=== PATIENT | female | born 1960 | race Caucasian/White ===

== ENCOUNTER 2021-06-13 15:38 | Inpatient (IN) ==
[2021-06-13] MEDS ORDERED: dexAMETHasone**PF** 10 MG/ML VIAL IV ONE (16:29)
[2021-06-13] MEDS ORDERED: ONDANSETRON INJ 2 MG/ML 2 ML VIAL IV STA (16:29)
[2021-06-13] MEDS ORDERED: SODIUM CHLORIDE 0.9% 1000ML 1,000 ML IV SCH (16:30)
[2021-06-13 16:44] LABS: Basophils # (auto) 0.01 K/uL (0-0.2); Basophils % (auto) 0.3 %; Eosinophils # (auto) 0.01 K/uL (0-0.5); Eosinophils % (auto) 0.3 %; Hematocrit (blood only) 41.4 % (37-47); Hemoglobin 13.9 g/dL (12.0-16.0); Immature Granulocytes # (auto) 0.01 K/uL (0.00-0.02); Immature Granulocytes % (auto) 0.3 %; Lymphocytes % (auto) 26.9 %; Mean Corpuscular Hemoglobin 28.7 pg (25-34); Mean Corpuscular Hgb Conc 33.6 g/dL (32-36); Mean Corpuscular Volume 85.4 fL (80-100); Mean Platelet Volume 10.2 fL (7.4-10.4); Monocytes # (auto) 0.54 K/uL (0.11-0.59); Monocytes % (auto) 16.2 %; Neutrophils # (auto) 1.87 K/uL (1.4-6.5); Platelet Count 143 K/uL (130-400); RDW Coefficient of Variation 12.8 % (11.5-14.5); RDW Standard Deviation 39.6 fL (36.4-46.3); Red Blood Count 4.85 M/uL (4.2-5.4); White Blood Count 3.34 K/uL (4.8-10.8)
[2021-06-13 16:52] LABS: Alanine Aminotransferase 82 U/L (12-78); Albumin Level 3.6 gm/dl (3.4-5.0); Aspartate Aminotransferase 65 U/L (15-37); BUN Creatinine Ratio 11.4 (10-20); Blood Urea Nitrogen 7 mg/dl (7-18); Calcium 8.2 mg/dl (8.5-10.1); Carbon Dioxide 27 mmol/L (21-32); Chloride 105 mmol/L (98-107); Creatinine Clr Calc Pharmacy 106.5 ml/min; Est GFR (African American) 113.8 ml/min; Est GFR (Non-African American) 98.2 ml/min; Glucose 120 mg/dl (70-99); Magnesium 2.3 mg/dl (1.8-2.4); Potassium 2.9 mmol/L (3.5-5.1); Sodium 138 mmol/L (136-145)
[2021-06-13 16:55] LABS: D Dimer 310 ug/L FEU (0-500)
--- NOTE | 2021-06-13 16:55 | Emergency Department Note ---
Impression & Plan COVID-19, Hypoxia, Nausea, Weakness ED Provider Note INFORMANT: Patient ED PROVIDER(S): Mitchel Benavides MD CHIEF COMPLAINT: Shortness of breath PLAN: Disposition: Admitted Condition: Good Outpatient prescription management: none Referral: None MEDICAL DECISION MAKING: Patient is exhibiting signs and symptoms for COVID-19. She was placed in isolation. She was hypoxic but responded very well to supplemental oxygen. She had an IV established. She was given Zofran, IV fluids, and IV Decadron. Chest x-ray and blood work performed. The patient's chest x-ray was unremarkable. Radha villela was doing much better after the above medications. Her CBC and chemistry panel revealed hypokalemia. She was given IV potassium. The patient was reassessed and was doing well. She will require supplemental oxygen and therefore admission. Consultation was made with the [facility] hospitalist se little. Patient was evaluated in the ER and admitted for further management. Troponin and D-dimer negative. Triage Nursing notes reviewed and agree them. Vital Signs: reviewed and remarkable for hypoxia on room air Differential diagnosis: COVID-19, reactive airway disease, pneumonia, pneumothorax, COPD, CHF, infections, cardiac ischemia, pulmonary embolism, musculoskeletal, gastrointestinal, as well as other pathologies. Diagnostics interpreted by me: ECG: Twelve-lead ECG reveals normal sinus rhythm at [address] present. No ST elevation. No PVCs or PACs. Normal axis and QRS. Cardiac Monitoring: Cardiac monitoring ordered by me: The patient was placed on continuous cardiac monitoring and observed. It revealed a normal sinus rhythm at 80 beats per minute without ectopy or evidence of dysrhythmia. Imaging studies: Chest x-ray. Findings: A chest x-ray was performed and revealed no pneumothorax, effusion, infiltrate, pulmonary edema, free air under the diaphragm, or wide mediastinum. Impression: No acute disease. HPI: The patient is a 61 year old female who presents to the Emergency Room with complaints of shortness of breath. This started this week and is worsening. The patient started to feel flulike symptoms 7 days ago. Her was diagnosed with Covid 19 this week. The patient became ill on the and her exhibited symptoms on the . The patient also notes the following associated symptoms, nausea, generalized weakness, dyspnea on exertion. The patient has found no relieving factors. Current pain is rated as 0/10. EMS noted the patient was hypoxic with O2 saturation of 86%. Patient is not immunized against COVID-19. Pt denies LOC, headache, fevers, chills, diaphoresis, visual changes, neck pain, chest pain, vomiting, abdominal pain, back pain, melena, hematochezia, urinary symptoms, numbness, weakness, lymphadenopathy, rash, or other complaints. ROS: See above HPI for pertinent positives & negatives. A total of 10 systems reviewed and were otherwise negative. PAST MEDICAL HISTORY:See Below , high cholesterol PAST SURGICAL HISTORY:See Below, FAMILY HISTORY:See Below SOCIAL HISTORY:See Below, , non-smoker HOME MEDICATIONS:See Below ALLERGIES:See Below VITALS:See Below PHYSICAL EXAMINATION: GENERAL: Awake, alert, dyspneic-appearing, in no distress HENT: Normocephalic, atraumatic. Oropharynx unremarkable. EYES: Normal conjunctiva. Sclera non-icteric. NECK: Inspection normal. Non-tender. Supple. No nuchal rigidity. FROM. No masses. RESPIRATORY: Clear to auscultation. No wheezes. No rales. Increased respiratory effort. CARDIAC: Normal rate. Normal rhythm. No murmurs. No rubs. Extremities warm and well perfused. Pulses equal. No JVD. GI: Soft, non-distended. No tenderness to palpation. No rebound or guarding. No masses. RECTAL: Deferred. MUSCULOSKELETAL: Atraumatic. Chest examination reveals no tenderness. The back is symmetrical on inspection without obvious abnormality. There is no CVA tenderness to palpation. No joint edema. LOWER EXTREMITIES: Calves are equal size bilaterally and non-tender. No edema. No discoloration. NEURO: Normal sensorium. No sensory or motor deficits noted. SKIN: No rash or jaundice noted. Mitchel Benavides MD Past Med/Surg History Social History Smoking Status: Never smoker Hx Alcohol Use: Yes Alcohol type: beer and wine Hx Substance Use: No Preferred Language: Greenlandic Communication Ability: Effective Professional Benefits Sales Consultant Required: No Beliefs That Will Affect Care: None Current Living Situation: Spouse Feels Safe at Home: Yes Safety Concerns: Feels Safe At This Time Assistive Devices: Glasses Allergies Allergies Allergy/AdvReac Type Severity Reaction Status Date / Time No Known Allergies Allergy Unverified 06/13/21 17:41 Home Meds Home Medications Medication Instructions Recorded Confirmed albuterol sulfate 90 mcg/actuation 1 puff INHALATION Q4H PRN 06/13/21 06/13/21 aerosol inhaler atorvastatin 10 mg tablet 10 mg PO DAILY 06/13/21 06/13/21 lisinopril 10 mg tablet 10 mg PO DAILY 06/13/21 06/13/21 sertraline 100 mg tablet 100 mg PO DAILY 06/13/21 06/13/21 Results & Data (ED) Vital Signs Vital Signs - 24 hr 06/13/21 16:01 06/13/21 16:04 06/13/21 16:07 Temperature 37.3 C Temperature Source Oral Pulse Rate 80 83 Pulse Rate from SpO2 Sensor 82 Pulse Rhythm Regular Pulse Strength Normal Respiratory Rate 19 25 H Respiratory Effort / Characteristics Non-Labored Respiratory Depth Normal Respiratory Pattern Regular Blood Pressure 140/88 136/83 Blood Pressure Mean 105 100 Blood Pressure Position Lying Pulse Oximetry 87 L 94 95 Oxygen Delivery Method Room Air Nasal Cannula Oxygen Flow Rate 3 Sepsis Recent Fever Within 48 Hours No Sepsis New/Unexplained Change in Mental Status N/A Sepsis Action Taken by Nursing No Action Required Laboratory Data Result diagrams: 06/13/21 15:54 06/13/21 15:54 Lab Results 06/13/21 06/13/21 06/13/21 Range/Units 15:54 15:54 15:54 WBC 3.34 L (4.8-10.8) K/uL RBC 4.85 (4.2-5.4) M/uL Hgb 13.9 (12.0-16.0) g/dL Hct 41.4 (37-47) % MCV 85.4 (80-100) fL MCH 28.7 (25-34) pg MCHC 33.6 (32-36) g/dL RDW Std Deviation 39.6 (36.4-46.3) fL RDW Coeff of Nataliia 12.8 (11.5-14.5) % Plt Count 143 (130-400) K/uL MPV 10.2 (7.4-10.4) fL Immature Gran % (Auto) 0.3 % Neut % (Auto) 56.0 % Lymph % (Auto) 26.9 % Kenton % (Auto) 16.2 % Eos % (Auto) 0.3 % Baso % (Auto) 0.3 % Neut # (Auto) 1.87 (1.4-6.5) K/uL Lymph # (Auto) 0.90 L (1.2-3.4) K/uL Kenton # (Auto) 0.54 (0.11-0.59) K/uL Eos # (Auto) 0.01 (0-0.5) K/uL Baso # (Auto) 0.01 (0-0.2) K/uL Immature Gran # (Auto) 0.01 (0.00-0.02) K/uL D-Dimer 310 (0-500) ug/L FEU Sodium 138 (136-145) mmol/L Potassium 2.9 L (3.5-5.1) mmol/L Chloride 105 (98-107) mmol/L Carbon Dioxide 27 (21-32) mmol/L Anion Gap 6.0 (3-11) BUN 7 (7-18) mg/dl Creatinine 0.63 (0.6-1.2) mg/dl Est Cr Clr Drug Dosing 106.5 ml/min Est GFR ( Amer) 113.8 ml/min Est GFR (Non-Af Amer) 98.2 ml/min BUN/Creatinine Ratio 11.4 (10-20) Glucose 120 H (70-99) mg/dl Calcium 8.2 L (8.5-10.1) mg/dl Magnesium 2.3 (1.8-2.4) mg/dl Total Bilirubin 0.5 (0.2-1) mg/dl AST 65 H (15-37) U/L ALT 82 H (12-78) U/L Alkaline Phosphatase 59 (45-117) U/L Troponin I < 0.015 (0-0.045) ng/ml Total Protein 7.3 (6.4-8.2) gm/dl Albumin 3.6 (3.4-5.0) gm/dl Globulin 3.7 (2.5-4.0) gm/dl Albumin/Globulin Ratio 1.0 (0.9-2) Procalcitonin (0-0.5) ng/ml COVID-19 Eval Order SARS-CoV-2 (PCR) (Negative) 06/13/21 06/13/21 06/13/21 Range/Units 15:54 15:54 15:54 WBC (4.8-10.8) K/uL RBC (4.2-5.4) M/uL Hgb (12.0-16.0) g/dL Hct (37-47) % MCV (80-100) fL MCH (25-34) pg MCHC (32-36) g/dL RDW Std Deviation (36.4-46.3) fL RDW Coeff of Nataliia (11.5-14.5) % Plt Count (130-400) K/uL MPV (7.4-10.4) fL Immature Gran % (Auto) % Neut % (Auto) % Lymph % (Auto) % Kenton % (Auto) % Eos % (Auto) % Baso % (Auto) % Neut # (Auto) (1.4-6.5) K/uL Lymph # (Auto) (1.2-3.4) K/uL Kenton # (Auto) (0.11-0.59) K/uL Eos # (Auto) (0-0.5) K/uL Baso # (Auto) (0-0.2) K/uL Immature Gran # (Auto) (0.00-0.02) K/uL D-Dimer (0-500) ug/L FEU Sodium (136-145) mmol/L Potassium (3.5-5.1) mmol/L Chloride (98-107) mmol/L Carbon Dioxide (21-32) mmol/L Anion Gap (3-11) BUN (7-18) mg/dl Creatinine (0.6-1.2) mg/dl Est Cr Clr Drug Dosing ml/min Est GFR ( Amer) ml/min Est GFR (Non-Af Amer) ml/min BUN/Creatinine Ratio (10-20) Glucose (70-99) mg/dl Calcium (8.5-10.1) mg/dl Magnesium (1.8-2.4) mg/dl Total Bilirubin (0.2-1) mg/dl AST (15-37) U/L ALT (12-78) U/L Alkaline Phosphatase (45-117) U/L Troponin I (0-0.045) ng/ml Total Protein (6.4-8.2) gm/dl Albumin (3.4-5.0) gm/dl Globulin (2.5-4.0) gm/dl Albumin/Globulin Ratio (0.9-2) Procalcitonin < 0.05 (0-0.5) ng/ml COVID-19 Eval Order Covid19 at [facility] SARS-CoV-2 (PCR) POSITIVE A* (Negative) Administered Medications Albuterol (Albut/Ipratrop 3mg/0.5mg Neb 3 Ml Vial) 3 ml NEB Q4R DIANA Stop: 07/13/21 22:59 Last Admin: 06/13/21 22:24 Dose: 3 ml Documented by: [id number] Discontinued Medications Dexamethasone Sodium Phosphate (DexamethasonePf 10 Mg/Ml Vial) 6 mg IV NOW ONE Stop: 06/13/21 16:30 Last Admin: 06/13/21 16:48 Dose: 6 mg Documented by: [id number] Sodium Chloride (Nss 1000ml) 1,000 mls @ 999 mls/hr IV .Q1H1M DIANA Stop: 06/13/21 17:30 Last Infusion: 06/13/21 17:50 Dose: 0 mls/hr Documented by: [id number] Admin: 06/13/21 16:48 Dose: 999 mls/hr Documented by: [id number] Potassium Chloride (K Tanner / Wtr) 10 meq in 100 mls @ 100 mls/hr IV ONE ONE Stop: 06/13/21 18:28 Last Infusion: 06/13/21 19:05 Dose: 0 mls/hr Documented by: [id number] Admin: 06/13/21 18:06 Dose: 100 mls/hr Documented by: [id number] Remdesivir 200 mg/ Sodium (Chloride) 250 mls @ 125 mls/hr IV ONE STA; Protocol Stop: 06/13/21 21:53 Last Admin: 06/13/21 22:04 Dose: 125 mls/hr Documented by: [id number] Ondansetron HCl (Ondansetron Inj 2 Mg/Ml 2 Ml Vial) 4 mg IV NOW STA Stop: 06/13/21 16:30 Last Admin: 06/13/21 16:48 Dose: 4 mg Documented by: [id number] Potassium Chloride (Potassium Chloride Crtab 20 Meq Tabcr) 40 meq PO NOW STA Stop: 06/13/21 19:36 Last Admin: 06/13/21 21:08 Dose: 40 meq Documented by: [id number] Imaging Data Radiologist's Impression: Chest X-Ray 06/13/21 16:30 XR chest 1V portable CLINICAL HISTORY: Dyspnea COMPARISON STUDY: Chest radiograph April 10, 2015. FINDINGS: Lung volumes are at the lower limits of normal. Lungs are clear. There is no pneumothorax or pleural effusion. Cardiac size is normal. Mediastinal contours are normal. There is no evidence for pulmonary edema. Patient is mildly rotated. IMPRESSION: No acute cardiopulmonary findings. ACT 112: Negative or not required by law. Electronically signed by: Ishmael Mann M.D. 06/13/2021 4:52 PM Discharge Plan Visit Data Chief Complaint: Shortness of Breath/Dyspnea Stated Complaint: lethargic, weak ED Provider: Mitchel Benavides Discharge Problem: COVID-19, Hypoxia, Nausea, Weakness
[2021-06-13 16:57] LABS: Alkaline Phosphatase 59 U/L (45-117); Bilirubin,Total 0.5 mg/dl (0.2-1); Globulin 3.7 gm/dl (2.5-4.0); Total Protein 7.3 gm/dl (6.4-8.2); Troponin I < 0.015 ng/ml (0-0.045)
[2021-06-13] MEDS ORDERED: POTASSIUM CHLORIDE / WTR 10 MEQ/100 ML PLCT IV ONE (17:29)
--- NOTE | 2021-06-13 19:13 | History & Physical Report ---
Date of Service June 13, 2021 Assessment & Plan (1) COVID-19: Plan: Please refer to attending addendum and physical exam as I did not see the patient in person due to being COVID-19 positive. - COVID-19 positive - Procalcitonin not obtained - Lymphocytes 0.90, neutrophils 1.87 - CXR reviewed: Negative for acute findings - O2 sats at 87% on RA improved to 95% on 3 L via NC - WBC 3.34 - decadron 6 mg IV daily. If pt needs convalescent plasma then will ask att ending to obtain consent. Does not meet qualification for remdesivir since she is on symptom day #7. - Continue supportive treatment (2) Hypoxia: Plan: -As above improved now with supplemental oxygen, continue treatment as above (3) Asthma: Plan: -Patient reports this is exercise-induced, has as needed albuterol inhaler as well as nebulizer at home which she did use in the past few days due to worsening shortness of breath (4) Hypertension: Plan: -Continue lisinopril 10 mg daily (5) Anxiety: Plan: -Continue sertraline 100 mg daily (6) Hypokalemia: Plan: -2.9 on admission, replaced with 10 mEq in the ER, give 20 mEq with NSS x2 bags as well as 40 MEQ p.o. now -Trend with a.m. labs DVT PPx: - teds, scds, heparin subcu CODE: Conditional code, patient does not want to be intubated or have artificial airway technique, is willing to rediscuss this if her breathing were to worsen with COVID-19. Dispo: From home, likely to remain in the hospital x 1-2 days History of Present Illness Primary Care Provider: Tj Zheng PA-C This is a 61 yo F with PMHx of asthma, HTN, HTN, anxiety, who presents with worsening shortness of breath, nearly dry cough, and fatigue. Her tested positive for COVID-19 on Tuesday. She has been symptomatic since 06/06 and is positive on swab here in the ER. admits to having nausea, vomited once and diarrhea for 5 days now. Her appetite is poor due to loss of taste and smell. Denies fever, chills or sweats. She has been trying mucinex-complete, and using her inhaler and nebulizer which she has for asthma exacerbations at home which only made a slight improvement. She feels better with O2 here, but does not wear at baseline. She denies any recent travel, she questions if her caught it is work but unknown. 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 Allergies Allergy/AdvReac Type Severity Reaction Status Date / Time No Known Allergies Allergy Unverified 06/13/21 17:41 Home Medications Medication Instructions Recorded Confirmed Type albuterol sulfate 90 mcg/actuation 1 puff INHALATION Q4H PRN 06/13/21 06/13/21 History aerosol inhaler atorvastatin 10 mg tablet 10 mg PO DAILY 06/13/21 06/13/21 History lisinopril 10 mg tablet 10 mg PO DAILY 06/13/21 06/13/21 History sertraline 100 mg tablet 100 mg PO DAILY 06/13/21 06/13/21 History Past Med/Surg History Social History Smoking Status: Never smoker Preferred Language: Divehi Feels Safe at Home: Yes Review of Systems Review of Systems: Constitutional: No fever, sweats or chills Eyes: No diplopia, no worsening or blurred vision ENT: normal hearing, no trouble swallowing Respiratory: + dry cough, occasional clear sputum, + dyspnea at rest and on exertion Cardiovascular: No chest pain, tightness or palpitations Abdomen: No pain, + nausea, +vomiting, + diarrhea, no constipation Musculoskeletal: No joint pain, calf pain, swelling Neurologic: No weakness, numbness/tingling, or balance problems Psychiatric: + anxiety on medication, no depression Skin: No rash or itch Physical Exam Physical Exam: Please refer to attending addendum as I did not see the patient in person due to being COVID-19 positive. Results & Data Results & Data ([facility]) Vital Signs (Past 12 Hours) Vital Signs Temp Pulse Resp BP Pulse Ox 06/13/21 16:07 83 25 H 136/83 95 06/13/21 16:04 94 06/13/21 16:01 37.3 C 80 19 140/88 87 L Diagnostic Findings Chest X-Ray 06/13/21 16:30 XR chest 1V portable CLINICAL HISTORY: Dyspnea COMPARISON STUDY: Chest radiograph April 10, 2015. FINDINGS: Lung volumes are at the lower limits of normal. Lungs are clear. There is no pneumothorax or pleural effusion. Cardiac size is normal. Mediastinal contours are normal. There is no evidence for pulmonary edema. Patient is mildly rotated. IMPRESSION: No acute cardiopulmonary findings. ACT 112: Negative or not required by law. Electronically signed by: Ishmael Mann M.D. 06/13/2021 4:52 PM ECG Additional Comments: 13-JUN-2021 17:15:30 [facility]-EDSTAT ROUTINE RETRIEVAL Poor data quality, interpretation may be adversely affected Normal sinus rhythm Nonspecific ST abnormality Abnormal ECG When compared with ECG of 10-APR-2015 12:15, No significant change was found 25mm/s 10mm/mV 150Hz 9.0.9 12SL 241 KADEEM: 11 Referred by: REFERRED SELF Unconfirmed Vent. rate 79 BPM RI interval 164 ms QRS duration 68 ms QT/QTc 396/454 ms Code Status & VTE Plan Code Status Conditional: does not want artificial airway technique or intubation. Patient is willing to rediscuss this in the event that her breathing worsens due to the COVID-19 pneumonia. Supervising Physician Co-Signing Physician Notes 61-year-old lady with past medical history of asthma, hypertension, anxiety, GERD presented with worsening shortness of breath and severe exhaustion associated with cough with white sputum, loss of smell/taste sensation, diarrhea for 5 days. She been having symptoms since June 06, tested for Covid today. She will be managed for Covid pneumonia with IV dexamethasone and remdesivir in MedSurg telemetry. We will continue to monitor her labs. At bedside exam: GENERAL: Alert and oriented x3. NAD, on 3L. Patient having dry cough occasionally. Obese HEENT: No pallor, no icterus. Pupils equal, round and reactive to light. Oral mucosa moist. NECK: No JVD, no neck masses. HEART: S1 and S2 heard. Regular rate and rhythm. No murmur, no gallop. RESPIRATORY SYSTEM: Normal AP diameter. No accessory muscle use. No wheezing, no crackles. ABDOMEN: Soft, bowel sounds present, nontender, no distention. CENTRAL NERVOUS SYSTEM: Alert and oriented x3. No facial droop. Speech is clear. Obeys simple commands. Moves extremities. EXTREMITIES: No edema, no erythema seen. I have seen and examined the patient and have discussed the case with the provider above. I agree with the assessment and plan as stated.
[2021-06-13] MEDS ORDERED: POTASSIUM CHLORIDE CRTAB 20 MEQ TABCR PO STA (19:35)
[2021-06-13] MEDS ORDERED: REMDESIVIR 200 MG in SODIUM CHLORIDE 0.9% 210 ML IV STA (19:54)
[2021-06-13] MEDS ORDERED: SODIUM CHLORIDE 0.9% 10ML FLUSH IV SCH (20:00)
[2021-06-13] MEDS: ALBUT/IPRATROP 3MG/0.5MG NEB 3 ML VIAL NEB SCH (22:24)
[2021-06-13] MEDS: guaiFENesin 600 MG TABCR PO SCH (23:01)
[2021-06-13] MEDS: NSS + 20MEQ KCL 20 MEQ/1,000 ML BAG IV SCH (23:02)
[2021-06-13] MEDS: HEPARIN SOD 5,000 UNIT/0.5 ML VIAL SQ SCH (23:03)
[2021-06-14] MEDS: ALBUT/IPRATROP 3MG/0.5MG NEB 3 ML VIAL NEB SCH ×6 (03:34→23:16)
[2021-06-14] MEDS: NSS + 20MEQ KCL 20 MEQ/1,000 ML BAG IV SCH (07:27)
[2021-06-14 08:33] LABS: Appearance Urine Clear (Clear); Bilirubin Urine Negative (Negative); Blood Urine Negative (Negative); Color Urine Yellow; Glucose Urine UA Negative (Negative); Ketones Urine Trace (Negative); Leukocyte Esterase Urine Negative (Negative); Nitrite Urine Negative (Negative); Protein Urine Negative (Negative); Specific Gravity Urine 1.017 (1.000-1.030); Urobilinogen Urine Negative (Negative); pH Urine 5.5 (4.5-7.5)
[2021-06-14 08:44] LABS: Hematocrit (blood only) 41.9 % (37-47); Hemoglobin 13.9 g/dL (12.0-16.0); Mean Corpuscular Hemoglobin 28.8 pg (25-34); Mean Corpuscular Hgb Conc 33.2 g/dL (32-36); Mean Corpuscular Volume 86.9 fL (80-100); Mean Platelet Volume 10.3 fL (7.4-10.4); Platelet Count 173 K/uL (130-400); RDW Standard Deviation 41.8 fL (36.4-46.3); Red Blood Count 4.82 M/uL (4.2-5.4); White Blood Count 4.51 K/uL (4.8-10.8)
[2021-06-14 09:16] LABS: Alanine Aminotransferase 76 U/L (12-78); Albumin Level 3.3 gm/dl (3.4-5.0); Aspartate Aminotransferase 47 U/L (15-37); BUN Creatinine Ratio 10.2 (10-20); Bilirubin Direct < 0.1 mg/dl (0-0.2); Blood Urea Nitrogen 8 mg/dl (7-18); Calcium 8.1 mg/dl (8.5-10.1); Carbon Dioxide 22 mmol/L (21-32); Chloride 110 mmol/L (98-107); Creatinine Clr Calc Pharmacy 84.9 ml/min; Est GFR (Non-African American) 81.9 ml/min; Glucose 134 mg/dl (70-99); Magnesium 2.3 mg/dl (1.8-2.4); Potassium 3.3 mmol/L (3.5-5.1); Sodium 143 mmol/L (136-145)
[2021-06-14 09:18] LABS: Albumin Globulin Ratio 0.9 (0.9-2); Alkaline Phosphatase 55 U/L (45-117); Bilirubin,Total 0.3 mg/dl (0.2-1); Globulin 3.7 gm/dl (2.5-4.0); Phosphorus 2.3 mg/dl (2.5-4.9)
[2021-06-14] MEDS: dexAMETHasone 6 MG in SYRINGE 0 ML IV SCH (09:25)
[2021-06-14] MEDS: guaiFENesin 600 MG TABCR PO SCH ×2 (09:26→21:08)
[2021-06-14] MEDS: BENZONATATE 100 MG CAPSULE PO SCH ×3 (09:27→21:07)
[2021-06-14] MEDS: HEPARIN SOD 5,000 UNIT/0.5 ML VIAL SQ SCH ×2 (10:08→21:09)
[2021-06-14] MEDS ORDERED: POTASSIUM CHLORIDE CRTAB 20 MEQ TABCR PO STA (12:37)
[2021-06-14] MEDS: POT PHOSPHATE MONOBASIC W/ SOD TAB PO SCH ×3 (13:08→21:07)
--- NOTE | 2021-06-14 13:57 | Hospitalist Progress Note ---
Date of Service June 14, 2021 Assessment & Plan (1) COVID-19: (2) Hypoxia: (3) Hypokalemia: Plan: 61-year-old lady with past medical history of asthma, hypertension, anxiety, GERD presented 06/13 with worsening shortness of breath and severe exhaustion associated with cough with white sputum, loss of smell/taste sensation, diarrhea for 5 days. She been having symptoms since June 06, tested for Covid on presentation. She is being managed for the following: #. COVID-19 pneumonia #. Hypoxia SPO2 87% on room air upon presentation to ED which improved to 95% on 3 L Procalcitonin was not elevated upon presentation. CXR was negative for acute findings. Concern for some bibasilar crackles on auscultation, continue to follow Started on Decadron 06/13 and remdesivir 06/13 Wean down oxygen as tolerated, encourage proning, encourage spirometry Continue supportive management We will continue to monitor labs #. Hypokalemia Monitor lab daily, replace potassium #. Asthma Exercise-induced, uses as needed albuterol inhaler as well as nebulizer at home Continue with home medication #. Hypertension Continue with home medication, undergo #. Anxiety Continue with home medication DVT PPx: - teds, scds, heparin subcu CODE: Conditional code, patient does not want to be intubated or have artificial airway technique, is willing to rediscuss this if her breathing were to worsen with COVID-19. Admission and Anticipated Discharge Date Admission Date: June 13, 2021 Subjective Patient was lying semiupright in bed, on 2 L nasal cannula oxygen, NAD, no issues overnight. Patient reports feeling better today. She has had 3 diarrhea-like bowel movements since admission. She is eating okay. Denies other review of symptoms. Reports cough getting a little bit better. Physical Exam Physical Exam: GENERAL: Alert and oriented x3. NAD, on 2 L HEENT: No pallor, no icterus. Pupils equal, round and reactive to light. Oral mucosa moist. NECK: No JVD, no neck masses. HEART: S1 and S2 heard. Regular rate and rhythm. No murmur, no gallop. RESPIRATORY SYSTEM: Normal AP diameter. No accessory muscle use. No wheezing, questionable crackles at bilateral bases. ABDOMEN: Soft, bowel sounds present, nontender, no distention. CENTRAL NERVOUS SYSTEM: Alert and oriented x3. No facial droop. Speech is clear. Obeys simple commands. Moves extremities. EXTREMITIES: No edema, no erythema seen. Results & Data Results & Data ([facility]) Vital Signs (Past 12 Hours) Vital Signs Temp Pulse Pulse Resp BP Pulse Ox 06/14/21 11:55 36.3 C L 90 20 115/75 92 06/14/21 11:02 86 20 94 06/14/21 08:15 36.8 C 70 20 117/83 93 06/14/21 07:38 80 16 96 06/14/21 07:00 66 06/14/21 04:00 36.5 C 88 18 137/77 91 06/14/21 03:36 80 18 87 L
[2021-06-14] MEDS: REMDESIVIR 100 MG in SODIUM CHLORIDE 0.9% 230 ML IV SCH (19:47)
[2021-06-14] MEDS: SODIUM CHLORIDE 0.9% 10ML FLUSH IV SCH (21:06)
[2021-06-14] MEDS ORDERED: ZOLPIDEM TARTRATE 5 MG TAB PO STA (23:13)
[2021-06-15] MEDS: ALBUT/IPRATROP 3MG/0.5MG NEB 3 ML VIAL NEB SCH ×2 (03:21→07:21)
[2021-06-15] MEDS: ACETAMINOPHEN 325 MG TAB PO PRN ×2 (04:00→08:55)
[2021-06-15] MEDS: POT PHOSPHATE MONOBASIC W/ SOD TAB PO SCH (08:32)
[2021-06-15] MEDS: dexAMETHasone 6 MG in SYRINGE 0 ML IV SCH (08:32)
[2021-06-15] MEDS: BENZONATATE 100 MG CAPSULE PO SCH ×3 (08:32→20:13)
[2021-06-15] MEDS: HEPARIN SOD 5,000 UNIT/0.5 ML VIAL SQ SCH ×2 (08:32→20:14)
[2021-06-15] MEDS: guaiFENesin 600 MG TABCR PO SCH ×2 (08:32→20:14)
[2021-06-15 08:47] LABS: Albumin Level 3.1 gm/dl (3.4-5.0); BUN Creatinine Ratio 21.3 (10-20); Calcium 8.1 mg/dl (8.5-10.1); Est GFR (African American) 116.9 ml/min; Est GFR (Non-African American) 100.9 ml/min; Potassium 3.2 mmol/L (3.5-5.1)
[2021-06-15] MEDS: ONDANSETRON INJ 2 MG/ML 2 ML VIAL IV PRN (08:56)
[2021-06-15 08:58] LABS: Albumin Globulin Ratio 0.9 (0.9-2); Bilirubin,Total 0.3 mg/dl (0.2-1); Globulin 3.4 gm/dl (2.5-4.0); Phosphorus 3.5 mg/dl (2.5-4.9); Total Protein 6.5 gm/dl (6.4-8.2)
[2021-06-15] MEDS ORDERED: POTASSIUM CHLORIDE CRTAB 20 MEQ TABCR PO STA (10:31)
[2021-06-15 10:59] LABS: Basophils # (auto) 0.01 K/uL (0-0.2); Basophils % (auto) 0.2 %; Hematocrit (blood only) 38.8 % (37-47); Hemoglobin 12.8 g/dL (12.0-16.0); Lymphocytes # (auto) 1.64 K/uL (1.2-3.4); Lymphocytes % (auto) 31.6 %; Mean Corpuscular Hemoglobin 28.7 pg (25-34); Mean Platelet Volume 10.1 fL (7.4-10.4); Monocytes # (auto) 0.55 K/uL (0.11-0.59); Monocytes % (auto) 10.6 %; Neutrophils # (auto) 2.99 K/uL (1.4-6.5); Neutrophils % (auto) 57.6 %; Platelet Count 171 K/uL (130-400); RDW Coefficient of Variation 13.2 % (11.5-14.5); RDW Standard Deviation 42.2 fL (36.4-46.3); Red Blood Count 4.46 M/uL (4.2-5.4); White Blood Count 5.19 K/uL (4.8-10.8)
--- NOTE | 2021-06-15 12:39 | XRay Report ---
SINGLE VIEW CHEST CLINICAL HISTORY: Fever. Covid. FINDINGS: An AP, portable, upright chest radiograph is compared to study dated 06/13/2021. The cardiom ediastinal silhouette is unremarkable. Multifocal airspace consolidation is seen throughout both lung s. This has significantly increased as compared 06/13/2021. No large pleural effusion or pneumothorax is seen. The bony thorax is grossly intact. Cholecystectomy clips are noted in the right upper quadra nt. IMPRESSION: Multifocal airspace consolidation is consistent with reported history of a viral pneumoni a. This has significantly increased as compared to 06/13/2021. Radiographic follow-up to resolution is recommended. ACT 112: Negative or not required by law. Electronically signed by: Cleveland Braun M.D. 06/15/2021 12:38 PM
[2021-06-15] MEDS ORDERED: CALCIUM CARBONATE 500 MG CHEWABLE TAB PO PRN (17:24)
--- NOTE | 2021-06-15 17:29 | Hospitalist Progress Note ---
Date of Service June 15, 2021 Assessment & Plan (1) COVID-19: (2) Hypoxia: (3) Hypokalemia: Plan: 61-year-old lady with past medical history of asthma, hypertension, anxiety, GERD presented 06/13 with worsening shortness of breath and severe exhaustion associated with cough with white sputum, loss of smell/taste sensation, diarrhea for 5 days. She been having symptoms since June 06, tested for Covid on presentation. She is being managed for the following: #. COVID-19 pneumonia #. Hypoxia SPO2 87% on room air upon presentation to ED which improved to 95% on 3 L Procalcitonin was not elevated upon presentation. CXR was negative for acute findings. Concern for some bibasilar crackles on auscultation-still persist, continue to follow Episode of spike in temperature overnight to 39.5, pro-Anoop negative,, 06/15 CXR worsening suggestive of viral pneumonia Started on Decadron 06/13 and remdesivir 06/13, continue Wean down oxygen as tolerated, encourage proning, encourage spirometry Continue supportive management We will continue to monitor labs #. Hypokalemia Monitor lab daily, replace potassium #. Asthma Exercise-induced, uses as needed albuterol inhaler as well as nebulizer at home Continue with home medication #. Hypertension Continue with home medication, undergo #. Anxiety Continue with home medication DVT PPx: - teds, scds, heparin subcu CODE: Conditional code, patient does not want to be intubated or have artificial airway technique, is willing to rediscuss this if her breathing were to worsen with COVID-19. Admission and Anticipated Discharge Date Admission Date: June 13, 2021 Subjective Patient was lying semiupright in bed, on 2 L nasal cannula oxygen, NAD, patient complains of increasing cough overnight than during the day. Patient has history of GERD. Patient was complaining of heartburn. Currently on dexamethasone, which might have triggered it. She has decreased appetite owing to heartburn. We will put her on pantoprazole/as needed Tums. She has had 2 diarrhea-like bowel movements in last 24 hours. She had one episode of temperature spike of 39.5 overnight. Likely due to stress from coughing for 3 hours as per patient. Will get pro-Anoop and CXR to rule out infection. Denies other review of symptoms. Physical Exam Physical Exam: GENERAL: Alert and oriented x3. NAD, on 2 L HEENT: No pallor, no icterus. Pupils equal, round and reactive to light. Oral mucosa moist. NECK: No JVD, no neck masses. HEART: S1 and S2 heard. Regular rate and rhythm. No murmur, no gallop. RESPIRATORY SYSTEM: Normal AP diameter. No accessory muscle use. No wheezing, questionable crackles at bilateral bases. ABDOMEN: Soft, bowel sounds present, nontender, no distention. CENTRAL NERVOUS SYSTEM: Alert and oriented x3. No facial droop. Speech is clear. Obeys simple commands. Moves extremities. EXTREMITIES: No edema, no erythema seen. Results & Data Results & Data ([facility]) Vital Signs (Past 12 Hours) Vital Signs Temp Pulse Pulse Resp BP Pulse Ox 06/15/21 17:08 36.4 C L 79 16 134/83 94 06/15/21 15:00 82 06/15/21 11:11 36.6 C 83 18 115/77 94 06/15/21 09:36 92 06/15/21 07:58 92 H 06/15/21 07:38 37.2 C 94 H 22 129/73 93 06/15/21 07:22 87 18 97
[2021-06-15] MEDS: REMDESIVIR 100 MG in SODIUM CHLORIDE 0.9% 230 ML IV SCH (20:12)
[2021-06-15] MEDS: PANTOprazole 40 MG TAB PO SCH (20:14)
[2021-06-15] MEDS: SODIUM CHLORIDE 0.9% 10ML FLUSH IV SCH (21:48)
[2021-06-16] MEDS: ALBUT/IPRATROP 3MG/0.5MG NEB 3 ML VIAL NEB PRN ×2 (04:24→21:26)
[2021-06-16 08:45] LABS: Hematocrit (blood only) 37.8 % (37-47); Hemoglobin 12.3 g/dL (12.0-16.0); Mean Corpuscular Hgb Conc 32.5 g/dL (32-36); Mean Corpuscular Volume 86.1 fL (80-100); Mean Platelet Volume 10.1 fL (7.4-10.4); Platelet Count 183 K/uL (130-400); RDW Coefficient of Variation 13.1 % (11.5-14.5); RDW Standard Deviation 41.9 fL (36.4-46.3); Red Blood Count 4.39 M/uL (4.2-5.4); White Blood Count 5.74 K/uL (4.8-10.8)
[2021-06-16] MEDS: BENZONATATE 100 MG CAPSULE PO SCH ×3 (09:06→20:55)
[2021-06-16] MEDS: HEPARIN SOD 5,000 UNIT/0.5 ML VIAL SQ SCH ×2 (09:06→20:55)
[2021-06-16] MEDS: dexAMETHasone 6 MG in SYRINGE 0 ML IV SCH (09:06)
[2021-06-16] MEDS: PANTOprazole 40 MG TAB PO SCH ×2 (09:06→20:55)
[2021-06-16] MEDS: guaiFENesin 600 MG TABCR PO SCH ×2 (09:06→20:55)
[2021-06-16 09:11] LABS: BUN Creatinine Ratio 23.1 (10-20); Calcium 8.3 mg/dl (8.5-10.1); Creatinine Clr Calc Pharmacy 148.8 ml/min; Est GFR (African American) 127.1 ml/min; Est GFR (Non-African American) 109.7 ml/min; Magnesium 1.9 mg/dl (1.8-2.4); Potassium 3.3 mmol/L (3.5-5.1)
[2021-06-16] MEDS: ONDANSETRON INJ 2 MG/ML 2 ML VIAL IV PRN (09:42)
[2021-06-16] MEDS ORDERED: POTASSIUM CHLORIDE CRTAB 20 MEQ TABCR PO STA (13:02)
[2021-06-16] MEDS ORDERED: POTASSIUM CHLORIDE CRTAB 20 MEQ TABCR PO ONE (14:03)
--- NOTE | 2021-06-16 17:33 | Hospitalist Progress Note ---
Date of Service June 16, 2021 Assessment & Plan (1) COVID-19: (2) Hypoxia: (3) Hypokalemia: Plan: 61-year-old lady with past medical history of asthma, hypertension, anxiety, GERD presented 06/13 with worsening shortness of breath and severe exhaustion associated with cough with white sputum, loss of smell/taste sensation, diarrhea for 5 days. She been having symptoms since June 06, tested for Covid on presentation. She is being managed for the following: #. COVID-19 pneumonia #. Hypoxia SPO2 87% on room air upon presentation to ED which improved to 95% on 3 L Procalcitonin was not elevated upon presentation. CXR was negative for acute findings. Concern for some bibasilar crackles on auscultation-still persist, continue to follow 06/15episode of spike in temperature overnight to 39.5, pro-Anoop negative,, 06/15 CXR worsening suggestive of viral pneumonia Started on Decadron 06/13 and remdesivir 06/13, continue Wean down oxygen as tolerated, encourage proning, encourage spirometry Patient subjectively does not feel much better. Continue supportive management We will continue to monitor labs #. Hypokalemia Monitor lab daily, replace potassium #. Asthma Exercise-induced, uses as needed albuterol inhaler as well as nebulizer at home Continue with home medication #. Hypertension Continue with home medication, undergo #. Anxiety Continue with home medication #. History of GERD Currently on PPI twice daily since she has heartburn while on dexamethasone. Taper down to once daily to stop once he is off of dexamethasone. DVT PPx: - teds, scds, heparin subcu CODE: Conditional code, patient does not want to be intubated or have artificial airway technique, is willing to rediscuss this if her breathing were to worsen with COVID-19. Admission and Anticipated Discharge Date Admission Date: June 13, 2021 Subjective Patient was sitting up in bed, on 2 L nasal cannula oxygen, NAD. Patient reports improvement in her cough but still has some cough during the night. Heartburn has improved. Appetite is slowly improving. Patient on pantoprazole/Tums to cover for history of GERD on the background of daily dexamethasone. She has had 2 diarrhea-like bowel movements in last 24 hours. Denies other review of symptoms. Physical Exam Physical Exam: GENERAL: Alert and oriented x3. NAD, on 2 L HEENT: No pallor, no icterus. Pupils equal, round and reactive to light. Oral mucosa moist. NECK: No JVD, no neck masses. HEART: S1 and S2 heard. Regular rate and rhythm. No murmur, no gallop. RESPIRATORY SYSTEM: Normal AP diameter. No accessory muscle use. No wheezing, questionable crackles at bilateral bases. ABDOMEN: Soft, bowel sounds present, nontender, no distention. CENTRAL NERVOUS SYSTEM: Alert and oriented x3. No facial droop. Speech is clear. Obeys simple commands. Moves extremities. EXTREMITIES: No edema, no erythema seen. Results & Data Results & Data ([facility]) Vital Signs (Past 12 Hours) Vital Signs Temp Pulse Pulse Pulse Resp BP Pulse Ox 06/16/21 16:13 90 06/16/21 16:12 36.8 C 73 73 18 112/76 92 06/16/21 15:12 74 06/16/21 12:23 90 06/16/21 12:20 89 L 06/16/21 12:17 36.8 C 84 20 112/75 87 L 06/16/21 09:07 90 06/16/21 09:06 88 L 06/16/21 09:02 36.9 C 87 20 112/74 93 06/16/21 07:30 86
[2021-06-16] MEDS: REMDESIVIR 100 MG in SODIUM CHLORIDE 0.9% 230 ML IV SCH (20:54)
[2021-06-16] MEDS: SODIUM CHLORIDE 0.9% 10ML FLUSH IV SCH (22:07)
[2021-06-17] MEDS: ALBUT/IPRATROP 3MG/0.5MG NEB 3 ML VIAL NEB PRN ×3 (04:37→22:39)
[2021-06-17] MEDS: PANTOprazole 40 MG TAB PO SCH ×2 (08:23→20:41)
[2021-06-17] MEDS: BENZONATATE 100 MG CAPSULE PO SCH ×3 (08:23→20:32)
[2021-06-17] MEDS: HEPARIN SOD 5,000 UNIT/0.5 ML VIAL SQ SCH ×2 (08:23→20:39)
[2021-06-17] MEDS: guaiFENesin 600 MG TABCR PO SCH ×2 (08:23→20:40)
[2021-06-17] MEDS: dexAMETHasone 6 MG in SYRINGE 0 ML IV SCH (08:41)
[2021-06-17 09:08] LABS: BUN Creatinine Ratio 22.6 (10-20); Calcium 8.9 mg/dl (8.5-10.1); Creatinine Clr Calc Pharmacy 155.9 ml/min; Est GFR (Non-African American) 111.3 ml/min; Magnesium 2.1 mg/dl (1.8-2.4); Potassium 3.3 mmol/L (3.5-5.1)
--- NOTE | 2021-06-17 09:18 | Electrocardiogram Report ---
Test Reason : Blood Pressure : / mmHG Vent. Rate : 079 BPM Atrial Rate : 079 BPM P-R Int : 164 ms QRS Dur : 068 ms QT Int : 396 ms P-R-T Axes : 032 -07 020 degrees QTc Int : 454 ms Poor data quality, interpretation may be adversely affected Normal sinus rhythm Nonspecific ST abnormality Abnormal ECG When compared with ECG of 10-APR-2015 12:15, No significant change was found Confirmed by Jarred Landry ([id number]) on 06/17/2021 9:18:09 AM Referred By: REFERRED SELF Confirmed By:Jarred Landry
[2021-06-17] MEDS ORDERED: POTASSIUM CHLORIDE CRTAB 20 MEQ TABCR PO STA (12:51)
--- NOTE | 2021-06-17 12:56 | Hospitalist Progress Note ---
Date of Service June 17, 2021 Assessment & Plan (1) COVID-19: (2) Hypoxia: (3) Hypokalemia: Plan: 61-year-old lady with past medical history of asthma, hypertension, anxiety, GERD presented 06/13 with worsening shortness of breath and severe exhaustion associated with cough with white sputum, loss of smell/taste sensation, diarrhea for 5 days. She been having symptoms since June 06, tested for Covid on presentation. She is being managed for the following: #. COVID-19 pneumonia #. Acute hypoxic respiratory failure Currently doing okay. Remains on 2 L of nasal cannula. Reports shortness of breath is improved. Chest x-ray on admission negative for any concerning findings. Procalcitonin was not concerning C/w Decadron 06/13 and remdesivir 06/13, last day today Encourage proning, encourage spirometry Will order 1 dose of IV Lasix 20 mg now. Monitor ins and outs along with daily weights. #. Hypokalemia - repleted #. Asthma Exercise-induced, uses as needed albuterol inhaler as well as nebulizer at home Continue with home medication #. Hypertension Continue with home medication #. Anxiety Continue with home medication #. History of GERD Currently on PPI twice daily since she has heartburn while on dexamethasone. Taper down to once daily to stop once he is off of dexamethasone. DVT PPx: - teds, scds, heparin subcu CODE: Conditional code, patient does not want to be intubated or have artificial airway technique, is willing to rediscuss this if her breathing were to worsen with COVID-19. Admission and Anticipated Discharge Date Admission Date: June 13, 2021 Subjective Patient reports she is feeling better but her primary concern is still shortness of breath. Does have minimal productive cough. Appetite is okay. Diarrhea is getting better. Denies any chest pain, abdominal pain or dysuria. Appetite is okay as well. Other review of system is negative. Review of Systems Review of Systems: All systems reviewed & are unremarkable except as noted in HPI & below Physical Exam Physical Exam: General: A&Ox3 HENT: NCAT, MMM, EOMI Eyes: PERRLA Neck: Supple, normal range of motion CVS: normal rate and rhythm Resp: b/l coarse breath sounds Abdomen: Soft, ND/NT, +BS Extremities: No c/c/e Neuro: face symmetric, strength grossly equal, no focal deficit Skin: warm and dry, no rashes/lesions/errythema MSK: normal ROM, no joint swelling/erythema Results & Data Results & Data ([facility]) Vital Signs (Past 12 Hours) Vital Signs Temp Pulse Pulse Resp BP Pulse Ox 06/17/21 12:31 36.6 C 65 18 107/72 91 06/17/21 11:17 90 06/17/21 08:23 90 06/17/21 08:20 86 L 06/17/21 08:19 36.7 C 73 18 108/70 94 06/17/21 07:14 72 06/17/21 04:38 69 24 94 06/17/21 03:06 36.7 C 74 18 115/82 97
[2021-06-17] MEDS ORDERED: FUROSEMIDE 20 MG in SYRINGE 0 ML IV ONE (13:15)
[2021-06-17] MEDS: REMDESIVIR 100 MG in SODIUM CHLORIDE 0.9% 230 ML IV SCH (20:30)
[2021-06-17] MEDS: SODIUM CHLORIDE 0.9% 10ML FLUSH IV SCH (20:31)
[2021-06-18 06:40] LABS: Hematocrit (blood only) 38.2 % (37-47); Hemoglobin 12.5 g/dL (12.0-16.0); Mean Corpuscular Hemoglobin 28.1 pg (25-34); Mean Corpuscular Hgb Conc 32.7 g/dL (32-36); Mean Corpuscular Volume 85.8 fL (80-100); Mean Platelet Volume 10.1 fL (7.4-10.4); Platelet Count 266 K/uL (130-400); RDW Coefficient of Variation 12.8 % (11.5-14.5); RDW Standard Deviation 40.5 fL (36.4-46.3); Red Blood Count 4.45 M/uL (4.2-5.4); White Blood Count 5.53 K/uL (4.8-10.8)
[2021-06-18 07:04] LABS: Basophils # (auto) 0.04 K/uL (0-0.2); Basophils % (auto) 0.7 %; Eosinophils # (auto) 0.01 K/uL (0-0.5); Eosinophils % (auto) 0.2 %; Immature Granulocytes # (auto) 0.03 K/uL (0.00-0.02); Immature Granulocytes % (auto) 0.5 %; Lymphocytes % (auto) 34.4 %; Monocytes # (auto) 0.66 K/uL (0.11-0.59); Monocytes % (auto) 11.9 %; Neutrophils # (auto) 2.89 K/uL (1.4-6.5); Neutrophils % (auto) 52.3 %
[2021-06-18] MEDS: ALBUT/IPRATROP 3MG/0.5MG NEB 3 ML VIAL NEB PRN ×2 (07:04→20:25)
[2021-06-18 07:12] LABS: BUN Creatinine Ratio 17.7 (10-20); Calcium 8.6 mg/dl (8.5-10.1); Creatinine Clr Calc Pharmacy 125.7 ml/min; Est GFR (African American) 120.5 ml/min; Est GFR (Non-African American) 103.9 ml/min; Potassium 3.5 mmol/L (3.5-5.1)
[2021-06-18] MEDS: dexAMETHasone 6 MG in SYRINGE 0 ML IV SCH (08:25)
[2021-06-18] MEDS: BENZONATATE 100 MG CAPSULE PO SCH ×3 (08:25→21:10)
[2021-06-18] MEDS: guaiFENesin 600 MG TABCR PO SCH ×2 (08:26→21:10)
[2021-06-18] MEDS: HEPARIN SOD 5,000 UNIT/0.5 ML VIAL SQ SCH ×2 (08:26→21:09)
[2021-06-18] MEDS: PANTOprazole 40 MG TAB PO SCH ×2 (08:27→21:11)
--- NOTE | 2021-06-18 13:31 | Hospitalist Progress Note ---
Date of Service June 18, 2021 Assessment & Plan (1) COVID-19: (2) Hypoxia: (3) Hypokalemia: Plan: 61-year-old lady with past medical history of asthma, hypertension, anxiety, GERD presented 06/13 with worsening shortness of breath and severe exhaustion associated with cough with white sputum, loss of smell/taste sensation, diarrhea for 5 days. She been having symptoms since June 06, tested for Covid on presentation. She is being managed for the following: #. COVID-19 pneumonia #. Acute hypoxic respiratory failure Reports that shortness of breath is worse today than yesterday. Requiring anywhere between 2 to 3 L. Chest x-ray on admission negative for any concerning findings. Procalcitonin was not concerning Completed 5 days of therapy with remdesivir, continue with Decadron. Encourage proning, encourage spirometry Will order 1 dose of IV Lasix 20 mg now. Monitor ins and outs along with daily weights. #. Hypokalemia - repleted #. Asthma Exercise-induced, uses as needed albuterol inhaler as well as nebulizer at home Continue with home medication #. Hypertension Continue with home medication #. Anxiety Continue with home medication #. History of GERD Currently on PPI twice daily since she has heartburn while on dexamethasone. Taper down to once daily to stop once he is off of dexamethasone. DVT PPx: - teds, scds, heparin subcu CODE: Conditional code, patient does not want to be intubated or have artificial airway technique, is willing to rediscuss this if her breathing were to worsen with COVID-19. Admission and Anticipated Discharge Date Admission Date: June 13, 2021 Subjective Patient reports she feels awful today. Reports that shortness of breath is worse than yesterday. Cough is not that bad. Appetite is okay. Denies any nausea, vomiting or diarrhea. Does not feel ready to go home today. Review of Systems Review of Systems: All systems reviewed & are unremarkable except as noted in HPI & below Physical Exam Physical Exam: General: A&Ox3 HENT: NCAT, MMM, EOMI Eyes: PERRLA Neck: Supple, normal range of motion CVS: normal rate and rhythm Resp: b/l coarse breath sounds Abdomen: Soft, ND/NT, +BS Extremities: No c/c/e Neuro: face symmetric, strength grossly equal, no focal deficit Skin: warm and dry, no rashes/lesions/errythema MSK: normal ROM, no joint swelling/erythema Results & Data Results & Data ([facility]) Vital Signs (Past 12 Hours) Vital Signs Temp Pulse Pulse Pulse Pulse Pulse Pulse 06/18/21 11:37 36.5 C 90 06/18/21 11:23 77 89 99 H 76 06/18/21 07:54 36.7 C 81 06/18/21 07:48 98 H 06/18/21 07:05 72 06/18/21 03:28 36.9 C 70 Pulse Resp Resp Resp Resp Resp Resp 06/18/21 11:37 20 06/18/21 11:23 76 18 18 20 18 16 06/18/21 07:54 20 06/18/21 07:48 06/18/21 07:05 18 06/18/21 03:28 18 BP Pulse Ox Pulse Ox Pulse Ox Pulse Ox Pulse Ox 06/18/21 11:37 140/78 90 06/18/21 11:23 90 87 L 92 87 L 06/18/21 07:54 119/78 90 06/18/21 07:48 06/18/21 07:05 98 06/18/21 03:28 160/77 H 97
[2021-06-18] MEDS ORDERED: FUROSEMIDE 20 MG in SYRINGE 0 ML IV ONE (13:45)
[2021-06-19] MEDS: ALBUT/IPRATROP 3MG/0.5MG NEB 3 ML VIAL NEB PRN (03:02)
[2021-06-19] MEDS: HEPARIN SOD 5,000 UNIT/0.5 ML VIAL SQ SCH (09:07)
[2021-06-19] MEDS: PANTOprazole 40 MG TAB PO SCH ×2 (09:07→21:25)
[2021-06-19] MEDS: guaiFENesin 600 MG TABCR PO SCH ×2 (09:07→21:18)
[2021-06-19] MEDS: dexAMETHasone 6 MG in SYRINGE 0 ML IV SCH (09:14)
[2021-06-19] MEDS: dexAMETHasone 1 MG TAB PO SCH (10:33)
--- NOTE | 2021-06-19 15:34 | Hospitalist Progress Note ---
Date of Service June 19, 2021 Assessment & Plan (1) Acute respiratory failure due to COVID-19: (2) Pneumonia due to COVID-19 virus: Plan: Shortness of breath reportedly improved. She is oxygenating 95% on 4 L/min. She has completed 5 days of therapy with remdesivir and continues on daily Decadron. She is encouraged by her response to proning and should prone when able. She continues with incentive spirometry. Nebulizer bronchodilator therapy offered as needed. We will also start daily Lasix in the morning with potassium supplementation as needed to help reduce oxygen needs. There is not a significant amount of wheezing today. History of asthma is mild with as needed albuterol inhaler use. (3) Asthma: Plan: Does not appear to be in exacerbation. Continue with treatment as above. (4) Hypokalemia: Plan: in setting of recent diarrhea which has resolved, repleted, BMP in am (5) Hypertension: Plan: Blood pressure at goal, as we are starting Lasix tomorrow morning, continue to hold lisinopril 10 mg daily. Follow BMP. (6) Anxiety: Plan: home sertraline held, restart in am (7) DVT prophylaxis: Plan: Heparin-switch to Lovenox to reduce shock burden Conditional code Disposition-to home once off oxygen [facility]areli Reynoso [facility] Admission and Anticipated Discharge Date Admission Date: June 13, 2021 Subjective 61-year-old female admitted with Covid pneumonia She is reporting a progressive improvement in her breathing however remains on 4 L/min oxygen supplementation. Reports diarrhea has resolved Tolerating p.o. Afebrile Ambulating at her baseline Reports a symptom improvement with proning Review of Systems Review of Systems: All systems were reviewed and negative except as indicated in HPI above. Physical Exam Physical Exam: CONSTITUTIONAL: WNWD, vitals as above, generally well- appearing EYES: normal conjunctivae, no scleral icterus ENT: external ear and nose normal, MMM NECK: trachea midline RESPIRATORY: clear to auscultation bilaterally, no crackles, rales or wheezes, normal respiratory effort CARDIOVASCULAR: regular rate and rhythm, S1 and 2 heard without murmurs, gallops or rubs, no JVD, no peripheral edema GASTROINTESTINAL: soft, nontender, nondistended MUSCULOSKELETAL: strength 5/5 throughout, head is normocephalic and atraumatic SKIN: warm and dry NEUROLOGIC: CN 2-12 grossly intact, normal cognition, normal speech, no tremor, no gross focal deficits. PSYCHIATRIC: alert cooperative and oriented to person, place and time. Results & Data Results & Data ([facility]) Vital Signs (Past 12 Hours) Vital Signs Temp Pulse Pulse Resp BP Pulse Ox 06/19/21 12:11 36.6 C 75 20 95 06/19/21 09:13 91 06/19/21 08:17 36.6 C 84 18 112/64 93 06/19/21 07:41 79 Laboratory Results Liver Function 06/19/21 Range/Units 05:53 ALT 42 (12-78) U/L Medications Administered Current Inpatient Medications Acetaminophen (Acetaminophen 325 Mg Tab) 650 mg PO Q4H PRN PRN Reason: Moderate Pain Stop: 07/13/21 21:39 Last Admin: 06/15/21 08:55 Dose: 650 mg Documented by: Albuterol (Albut/Ipratrop 3mg/0.5mg Neb 3 Ml Vial) 3 ml NEB Q4R PRN PRN Reason: Shortness Of Breath Stop: 07/13/21 22:59 Last Admin: 06/19/21 03:02 Dose: 3 ml Documented by: Calcium Carbonate (Calcium Carbonate 500 Mg Chewable Tab) 500 mg PO Q12H PRN PRN Reason: Indigestion Stop: 07/15/21 17:23 Last Admin: 06/15/21 17:42 Dose: 500 mg Documented by: Dexamethasone (Dexamethasone 1 Mg Tab) 6 mg PO DAILY [facility] Stop: 07/19/21 08:59 Last Admin: 06/19/21 10:33 Dose: 6 mg Documented by: Guaifenesin (Guaifenesin 600 Mg Tabcr) 1,200 mg PO Q12 DIANA Stop: 07/13/21 21:39 Last Admin: 06/19/21 09:07 Dose: 1,200 mg Documented by: Heparin Sodium (Porcine) (Heparin Sod 5,000 Unit/0.5 Ml Vial) 5,000 units SQ Q12 DIANA Stop: 07/13/21 21:39 Last Admin: 06/19/21 09:07 Dose: 5,000 units Documented by: Ondansetron HCl (Ondansetron Inj 2 Mg/Ml 2 Ml Vial) 4 mg IV Q4H PRN PRN Reason: Nausea And Vomiting Stop: 07/13/21 21:39 Last Admin: 06/16/21 09:42 Dose: 4 mg Documented by: Pantoprazole Sodium (Pantoprazole 40 Mg Tab) 40 mg PO BID [facility] Stop: 07/15/21 20:59 Last Admin: 06/19/21 09:07 Dose: 40 mg Documented by:
[2021-06-19] MEDS: ASCORBIC ACID 500 MG TAB PO SCH (21:19)
[2021-06-20 07:47] LABS: Hematocrit (blood only) 39.2 % (37-47); Hemoglobin 13.1 g/dL (12.0-16.0); Mean Corpuscular Hemoglobin 28.5 pg (25-34); Mean Corpuscular Hgb Conc 33.4 g/dL (32-36); Mean Corpuscular Volume 85.2 fL (80-100); Mean Platelet Volume 9.7 fL (7.4-10.4); Platelet Count 341 K/uL (130-400); RDW Coefficient of Variation 12.8 % (11.5-14.5); RDW Standard Deviation 39.8 fL (36.4-46.3); White Blood Count 6.82 K/uL (4.8-10.8)
[2021-06-20 08:17] LABS: BUN Creatinine Ratio 20.9 (10-20); C Reactive Protein 3.97 mg/dl (0-0.29); Calcium 9.1 mg/dl (8.5-10.1); Creatinine Clr Calc Pharmacy 104.1 ml/min; Est GFR (African American) 113.2 ml/min; Est GFR (Non-African American) 97.7 ml/min; Phosphorus 3.8 mg/dl (2.5-4.9)
[2021-06-20] MEDS: ZINC SULFATE 220 MG CAPSULE PO SCH (08:18)
[2021-06-20] MEDS: POTASSIUM CHLORIDE CRTAB 20 MEQ TABCR PO SCH (08:18)
[2021-06-20] MEDS: guaiFENesin 600 MG TABCR PO SCH ×2 (08:19→21:34)
[2021-06-20] MEDS: SERTRALINE HCL 100 MG TABLET PO SCH (08:19)
[2021-06-20] MEDS: dexAMETHasone 1 MG TAB PO SCH (08:19)
[2021-06-20] MEDS: ATORVASTATIN 10 MG TAB PO SCH (08:19)
[2021-06-20] MEDS: ASCORBIC ACID 500 MG TAB PO SCH ×2 (08:19→21:34)
[2021-06-20] MEDS: ENOXAPARIN INJ 40 MG/0.4 ML SYR SQ SCH (08:19)
[2021-06-20] MEDS: FUROSEMIDE 40 MG TAB PO SCH (08:19)
[2021-06-20] MEDS: CHOLECALCIFEROL 1,000 UNITS 25 MCG TAB PO SCH (08:19)
[2021-06-20] MEDS: PANTOprazole 40 MG TAB PO SCH ×2 (08:19→21:34)
[2021-06-20 08:22] LABS: Magnesium 2.1 mg/dl (1.8-2.4); Potassium 3.6 mmol/L (3.5-5.1)
[2021-06-20] MEDS ORDERED: lisinopril 10 MG TAB PO SCH (09:00)
--- NOTE | 2021-06-20 13:56 | Hospitalist Progress Note ---
Date of Service June 20, 2021 Assessment & Plan (1) Acute respiratory failure due to COVID-19: (2) Pneumonia due to COVID-19 virus: Plan: Shortness of breath reportedly improved. She is oxygenating 95% on 4 L/min. She has completed 5 days of therapy with remdesivir and continues on daily Decadron. She is encouraged by her response to proning and should prone when able. She continues with incentive spirometry. Nebulizer bronchodilator therapy offered as needed. Continue with Lasix in the morning with potassium supplementation as needed to help reduce oxygen needs. History of asthma is mild with as needed albuterol inhaler use. (3) Asthma: Plan: Does not appear to be in exacerbation. Continue with treatment as above. (4) Hypokalemia: Plan: in setting of recent diarrhea which has resolved, repleted, BMP in am (5) Hypertension: Plan: Blood pressure at goal, as we are starting Lasix tomorrow morning, continue to hold lisinopril 10 mg daily. Follow BMP. (6) Anxiety: Plan: home sertraline held, restart in am (7) DVT prophylaxis: Plan: Lovenox Conditional code Disposition-to home once off oxygen DO [facility] Admission and Anticipated Discharge Date Admission Date: June 13, 2021 Subjective 61-year-old female admitted with Covid pneumonia She is reporting a progressive improvement in her breathing however remains on 4 L/min oxygen supplementation. Reports diarrhea has resolved Tolerating p.o. Afebrile Ambulating at her baseline Reports a symptom improvement with proning Oxygen status improved but after walking with nurse, still requiring some o xygen. Review of Systems Review of Systems: All systems were reviewed and negative except as indicated in HPI above. Physical Exam Physical Exam: CONSTITUTIONAL: WNWD, vitals as above, generally well- appearing EYES: normal conjunctivae, no scleral icterus ENT: external ear and nose normal, MMM NECK: trachea midline RESPIRATORY: clear to auscultation bilaterally, no crackles, rales or wheezes, normal respiratory effort CARDIOVASCULAR: regular rate and rhythm, S1 and 2 heard without murmurs, gallops or rubs, no JVD, no peripheral edema GASTROINTESTINAL: soft, nontender, nondistended MUSCULOSKELETAL: strength 5/5 throughout, head is normocephalic and atraumatic SKIN: warm and dry NEUROLOGIC: CN 2-12 grossly intact, normal cognition, normal speech, no tremor, no gross focal deficits. PSYCHIATRIC: alert cooperative and oriented to person, place and time. Results & Data Results & Data ([facility]) Vital Signs (Past 12 Hours) Vital Signs Temp Pulse Pulse Resp BP Pulse Ox 06/20/21 12:06 36.7 C 77 18 107/70 93 06/20/21 08:13 36.9 C 63 18 108/64 92 06/20/21 07:39 61 06/20/21 05:00 36.9 C 70 22 130/87 97 Laboratory Results Short CBC 06/20/21 Range/Units 07:21 WBC 6.82 (4.8-10.8) K/uL Hgb 13.1 (12.0-16.0) g/dL Hct 39.2 (37-47) % Plt Count 341 (130-400) K/uL BMP 06/20/21 07:21 Sodium 140 Potassium 3.6 Chloride 105 Carbon Dioxide 29 BUN 13 Creatinine 0.64 Glucose 106 H Calcium 9.1 Medications Administered Current Inpatient Medications Acetaminophen (Acetaminophen 325 Mg Tab) 650 mg PO Q4H PRN PRN Reason: Moderate Pain Stop: 07/13/21 21:39 Last Admin: 06/15/21 08:55 Dose: 650 mg Documented by: Albuterol (Albut/Ipratrop 3mg/0.5mg Neb 3 Ml Vial) 3 ml NEB Q4R PRN PRN Reason: Shortness Of Breath Stop: 07/13/21 22:59 Last Admin: 06/19/21 03:02 Dose: 3 ml Documented by: Ascorbic Acid (Ascorbic Acid 500 Mg Tab) 500 mg PO BID DIANA Stop: 07/19/21 20:59 Last Admin: 06/20/21 08:19 Dose: 500 mg Documented by: Atorvastatin Calcium (Atorvastatin 10 Mg Tab) 10 mg PO DAILY [facility]IA[facility] Stop: 07/20/21 08:59 Last Admin: 06/20/21 08:19 Dose: 10 mg Documented by: Calcium Carbonate (Calcium Carbonate 500 Mg Chewable Tab) 500 mg PO Q12H PRN PRN Reason: Indigestion Stop: 07/15/21 17:23 Last Admin: 06/15/21 17:42 Dose: 500 mg Documented by: Dexamethasone (Dexamethasone 1 Mg Tab) 6 mg PO DAILY [facility] Stop: 07/19/21 08:59 Last Admin: 06/20/21 08:19 Dose: 6 mg Documented by: Enoxaparin Sodium (Enoxaparin Inj 40 Mg/0.4 Ml Syr) 40 mg SQ QAM DIANA Stop: 07/20/21 08:59 Last Admin: 06/20/21 08:19 Dose: 40 mg Documented by: Furosemide (Furosemide 40 Mg Tab) 40 mg PO QAM DIANA Stop: 07/20/21 08:59 Last Admin: 06/20/21 08:19 Dose: 40 mg Documented by: Guaifenesin (Guaifenesin 600 Mg Tabcr) 1,200 mg PO Q12 DIANA Stop: 07/13/21 21:39 Last Admin: 06/20/21 08:19 Dose: 1,200 mg Documented by: Lisinopril (Lisinopril 10 Mg Tab) 10 mg PO DAILY [facility] Stop: 07/20/21 08:59 Ondansetron HCl (Ondansetron Inj 2 Mg/Ml 2 Ml Vial) 4 mg IV Q4H PRN PRN Reason: Nausea And Vomiting Stop: 07/13/21 21:39 Last Admin: 06/16/21 09:42 Dose: 4 mg Documented by: Pantoprazole Sodium (Pantoprazole 40 Mg Tab) 40 mg PO BID [facility] Stop: 07/15/21 20:59 Last Admin: 06/20/21 08:19 Dose: 40 mg Documented by: Potassium Chloride (Potassium Chloride Crtab 20 Meq Tabcr) 20 meq PO QAM DIANA Stop: 07/20/21 08:59 Last Admin: 06/20/21 08:18 Dose: 20 meq Documented by: Sertraline HCl (Sertraline Hcl 100 Mg Tablet) 100 mg PO DAILY [facility] Stop: 07/20/21 08:59 Last Admin: 06/20/21 08:19 Dose: 100 mg Documented by: Vitamin D (Cholecalciferol 1,000 Units 25 Mcg Tab) 1,000 units PO QAM DIANA Stop: 07/20/21 08:59 Last Admin: 06/20/21 08:19 Dose: 1,000 units Documented by: Zinc Sulfate (Zinc Sulfate 220 Mg Capsule) 220 mg PO QAM [facility] Stop: 07/20/21 08:59 Last Admin: 06/20/21 08:18 Dose: 220 mg Documented by:
[2021-06-21] MEDS: ACETAMINOPHEN 325 MG TAB PO PRN (03:51)
[2021-06-21] MEDS: POTASSIUM CHLORIDE CRTAB 20 MEQ TABCR PO SCH (08:24)
[2021-06-21] MEDS: dexAMETHasone 1 MG TAB PO SCH (08:24)
[2021-06-21] MEDS: SERTRALINE HCL 100 MG TABLET PO SCH (08:24)
[2021-06-21] MEDS: PANTOprazole 40 MG TAB PO SCH (08:24)
[2021-06-21] MEDS: FUROSEMIDE 40 MG TAB PO SCH (08:24)
[2021-06-21] MEDS: guaiFENesin 600 MG TABCR PO SCH (08:24)
[2021-06-21] MEDS: ZINC SULFATE 220 MG CAPSULE PO SCH (08:24)
[2021-06-21] MEDS: ASCORBIC ACID 500 MG TAB PO SCH (08:24)
[2021-06-21] MEDS: ATORVASTATIN 10 MG TAB PO SCH (08:24)
[2021-06-21] MEDS: CHOLECALCIFEROL 1,000 UNITS 25 MCG TAB PO SCH (08:24)
[2021-06-21] MEDS: ENOXAPARIN INJ 40 MG/0.4 ML SYR SQ SCH (08:24)
--- NOTE | 2021-06-21 17:40 | Discharge Summary ---
Date of Service June 21, 2021 Admission HPI Per Admitting Provider This is a 61 yo F with PMHx of asthma, HTN, HTN, anxiety, who presents with worsening shortness of breath, nearly dry cough, and fatigue. Her tested positive for COVID-19 on Tuesday. She has been symptomatic since 06/06 and is positive on swab here in the ER. Sh admits to having nausea, vomited once and diarrhea for 5 days now. Her appetite is poor due to loss of taste and smell. Denies fever, chills or sweats. She has been trying mucinex-complete, and using her inhaler and nebulizer which she has for asthma exacerbations at home which only made a slight improvement. She feels better with O2 here, but does not wear at baseline. She denies any recent travel, she questions if her caught it is work but unknown. She reports not getting vaccinated due to not feeling sure about the research and possible adverse effects [employer] of the vaccine. Admission Exam Per Admitting Provider GENERAL: Alert and oriented x3. NAD, on 3L. Patient having dry cough occasionally. Obese HEENT: No pallor, no icterus. Pupils equal, round and reactive to light. Oral mucosa moist. NECK: No JVD, no neck masses. HEART: S1 and S2 heard. Regular rate and rhythm. No murmur, no gallop. RESPIRATORY SYSTEM: Normal AP diameter. No accessory muscle use. No wheezing, no crackles. ABDOMEN: Soft, bowel sounds present, nontender, no distention. CENTRAL NERVOUS SYSTEM: Alert and oriented x3. No facial droop. Speech is clear. Obeys simple commands. Moves extremities. EXTREMITIES: No edema, no erythema seen Principal Diagnosis Acute respiratory failure secondary to COVID-19 Pneumonia Asthma Discharge Exam CONSTITUTIONAL: WNWD, vitals as above, generally well-appearing EYES: normal conjunctivae, no scleral icterus ENT: external ear and nose normal, MMM NECK: trachea midline RESPIRATORY: clear to auscultation bilaterally, no crackles, rales or wheezes, normal respiratory effort CARDIOVASCULAR: regular rate and rhythm, S1 and 2 heard without murmurs, gallops or rubs, no JVD, no peripheral edema GASTROINTESTINAL: soft, nontender, nondistended MUSCULOSKELETAL: strength 5/5 throughout, head is normocephalic and atraumatic SKIN: warm and dry NEUROLOGIC: CN 2-12 grossly intact, normal cognition, normal speech, no tremor, no gross focal deficits. PSYCHIATRIC: alert cooperative and oriented to person, place and time. Discharge Data Allergies Allergy/AdvReac Type Severity Reaction Status Date / Time No Known Allergies Allergy Unverified 06/13/21 17:41 Consultations 06/13/21 19:16 ED Decision to Admit Stat Ordered Studies Laboratory Results WBC 6.82 K/uL (4.8-10.8) 06/20/21 07: RBC 4.60 M/uL (4.2-5.4) 06/20/21 07: Hgb 13.1 g/dL (12.0-16.0) 06/20/21 07: Hct 39.2 % (37-47) 06/20/21 07: MCV 85.2 fL (80-100) 06/20/21 07:21 MCH 28.5 pg (25-34) 06/20/21 07: MCHC 33.4 g/dL (32-36) 06/20/21 07: RDW Std Deviation 39.8 fL (36.4-46.3) 06/20/21 07: RDW Coeff of Nataliia 12.8 % (11.5-14.5) 06/20/21 07:21 Plt Count 341 K/uL (130-400) 06/20/21 07:21 MPV 9.7 fL (7.4-10.4) 06/20/21 07:21 Immature Gran % (Auto) 0.5 % 06/18/21 06:15 Neut % (Auto) 52.3 % 06/18/21 06:15 Lymph % (Auto) 34.4 % 06/18/21 06:15 [place] % (Auto) 11.9 % 06/18/21 06:15 Eos % (Auto) 0.2 % 06/18/21 06:15 Baso % (Auto) 0.7 % 06/18/21 06:15 Neut # (Auto) 2.89 K/uL (1.4-6.5) 06/18/21 06:15 Lymph # (Auto) 1.90 K/uL (1.2-3.4) 06/18/21 06:15 [place] # (Auto) 0.66 K/uL (0.11-0.59) H 06/18/21 06:15 Eos # (Auto) 0.01 K/uL (0-0.5) 06/18/21 06:15 Baso # (Auto) 0.04 K/uL (0-0.2) 06/18/21 06:15 Immature Gran # (Auto) 0.03 K/uL (0.00-0.02) H 06/18/21 06:15 D-Dimer 310 ug/L FEU (0-500) 06/13/21 15:54 Sodium 140 mmol/L (136-145) 06/20/21 07:21 Potassium 3.6 mmol/L (3.5-5.1) 06/20/21 07:21 Chloride 105 mmol/L (98-107) 06/20/21 07:21 Carbon Dioxide 29 mmol/L (21-32) 06/20/21 07:21 Anion Gap 6.0 (3-11) 06/20/21 07:21 BUN 13 mg/dl (7-18) 06/20/21 07:21 Creatinine 0.64 mg/dl (0.6-1.2) 06/20/21 07:21 Est Cr Clr Drug Dosing 104.1 ml/min 06/20/21 07:21 Est GFR ( Amer) 113.2 ml/min 06/20/21 07:21 Est GFR (Non-Af Amer) 97.7 ml/min 06/20/21 07:21 BUN/Creatinine Ratio 20.9 (10-20) H 06/20/21 07:21 Glucose 106 mg/dl (70-99) H 06/20/21 07:21 Calcium 9.1 mg/dl (8.5-10.1) 06/20/21 07:21 Phosphorus 3.8 mg/dl (2.5-4.9) 06/20/21 07:21 Magnesium 2.1 mg/dl (1.8-2.4) 06/20/21 07:21 Total Bilirubin 0.3 mg/dl (0.2-1) 06/15/21 07:52 Direct Bilirubin < 0.1 mg/dl (0-0.2) 06/14/21 08:20 AST 23 U/L (15-37) 06/18/21 06:15 ALT 42 U/L (12-78) 06/19/21 05:53 Alkaline Phosphatase 50 U/L (45-117) 06/15/21 07:52 Troponin I < 0.015 ng/ml (0-0.045) 06/13/21 15:54 C-Reactive Protein 3.97 mg/dl (0-0.29) H 06/20/21 07:21 Total Protein 6.5 gm/dl (6.4-8.2) 06/15/21 07:52 Albumin 3.1 gm/dl (3.4-5.0) L 06/15/21 07:52 Globulin 3.4 gm/dl (2.5-4.0) 06/15/21 07:52 Albumin/Globulin Ratio 0.9 (0.9-2) 06/15/21 07:52 Procalcitonin < 0.05 ng/ml (0-0.5) 06/20/21 07:21 Urine Color Yellow 06/14/21 08:14 Urine Appearance Clear (Clear) 06/14/21 08:14 Urine pH 5.5 (4.5-7.5) 06/14/21 08:14 Ur Specific [place] 1.017 (1.000-1.030) 06/14/21 08:14 Urine Protein Negative (Negative) 06/14/21 08:14 Urine Glucose (UA) Negative (Negative) 06/14/21 08:14 Urine Ketones Trace (Negative) H 06/14/21 08:14 Urine Blood Negative (Negative) 06/14/21 08:14 Urine Nitrite Negative (Negative) 06/14/21 08:14 Urine Bilirubin Negative (Negative) 06/14/21 08:14 Urine Urobilinogen Negative (Negative) 06/14/21 08:14 Ur Leukocyte Esterase Negative (Negative) 06/14/21 08:14 COVID-19 Eval Order Covid19 at [facility] 06/13/21 15:54 SARS-CoV-2 (PCR) POSITIVE (Negative) A* 06/13/21 15:54 Impressions Chest X-Ray 06/15/21 10:33 SINGLE VIEW CHEST CLINICAL HISTORY: Fever. Covid. FINDINGS: An AP, portable, upright chest radiograph is compared to study dated 06/13/2021. The cardiomediastinal silhouette is unremarkable. Multifocal airspace consolidation is seen throughout both lungs. This has significantly increased as compared 06/13/2021. No large pleural effusion or pneumothorax is seen. The bony thorax is grossly intact. Cholecystectomy clips are noted in the right upper quadrant. IMPRESSION: Multifocal airspace consolidation is consistent with reported history of a viral pneumonia. This has significantly increased as compared to 06/13/2021. Radiographic follow-up to resolution is recommended. ACT 112: Negative or not required by law. Electronically signed by: Cleveland Braun M.D. 06/15/2021 12:38 PM Hospital Course (1) Acute respiratory failure due to COVID-19: (2) Pneumonia due to COVID-19 virus: (3) Asthma: (4) Hypokalemia: The patient is a 61 year old female with asthma who presented with acute respiratory failure secondary to covid pneumonia. She completed 5 days of remdesivir therapy and continued on decadron each day. She continued to prone and use supportive measures such as nebulized bronchodilators and incentive spirometry. Diarrhea resolved and electrolytes were replaced as needed. She was discharged after nine days without the need for oxygen supplementation. At time of discharge she was hemodynamically stable and afebrile. She was asymptomatic and oxygenating well on room air. She was sent home in stable condition with close primary care followup recommended. Total Time Total Time Spent Total Time Spent (In Minutes): 60 Discharge Plan Discharge Items Patient Disposition: Home - Self-Care Reason For Visit: COVID PNEUMONIA Discharge Diagnosis: Acute respiratory failure secondary to COVID-19 Pneumonia Condition on Discharge: Good Activity: Resume your previous activity Non-emergency contact: Primary Care Provider Call non-emergency contact if: you have any medication questions, your symptoms worsen, your pain is not controlled, your pain is worsening, your pain is unusual for you, your pain is concerning for you and you have a fever Follow-up/Referrals: Tj Zheng PA-C [Primary Care Provider] - Diet: Regular Addtl Attending Provider Instructions: Please take all medications as instructed on discharge as below. As discussed we will give you an additional 3 days of steroids to taper off. Please continue to prone as able at home until symptoms completely resolved. Please take it easy for the next week or so until you feel better, increase activity as tolerated. Please observe recommended isolation instructions per [place] Department of Health including home isolation for at least 10 days after symptom onset, coming off isolation only if you are asymptomatic and afebrile for least 24 hours. Please follow-up with your primary care doctor within 1 week of discharge to ensure you are still doing well after going home. It may be prudent to repeat a chest xray in 4 weeks to ensure complete resolution of pneumonia. It was a pleasure taking care of you! Please call if you have any questions or problems. You can reach a [facility] hospitalist on duty at [facility] 24 hours a day by calling [phone]. Take care of yourself. Yareli Reynoso, DO [facility] Hospitalist Pending Studies at Discharge: No Stand-Alone Forms: My [facility] Medications and DC Order Prescriptions: New prednisone 20 mg tablet 20 mg PO DAILY Qty: 3 RF: 0 Continued atorvastatin 10 mg tablet 10 mg PO DAILY RF: 0 sertraline 100 mg tablet 100 mg PO DAILY RF: 0 lisinopril 10 mg tablet 10 mg PO DAILY RF: 0 albuterol sulfate 90 mcg/actuation HFA aerosol inhaler 1 puff INHALATION Q4H PRN (Reason: Shortness Of Breath Or Wheezing) RF: 0 Discharge Orders: Discharge Order (Routine); Ordered 06/21/21 Ordered By: Yareli Reynoso Admission Data Admit Date/Time: 06/13/21 19:22 Attending Provider: Yareli Reynoso Admit Provider: David Landon Primary Care Provider: Tj Zehng Other Providers: David Landon Other Interventions: Discharge Summary Assessment (RN) Last Done: 06/21/21 17:42
== END 2021-06-21 21:07 | disposition home or self-care (01) | DRG 177 ==
LOC: ED 15:38 → 2N 19:22 → SUATTDRO 19:22 → 2N 22:15
DX: R43.8 Other disturbances of smell and taste; K21.9 Gastro-esophageal reflux disease without esophagitis; I10 Essential (primary) hypertension; E78.00 Pure hypercholesterolemia, unspecified; U07.1 COVID-19; J45.909 Unspecified asthma, uncomplicated; F41.9 Anxiety disorder, unspecified; Z51.81 Encounter for therapeutic drug level monitoring; Z79.899 Other long term (current) drug therapy; J96.01 Acute respiratory failure with hypoxia; E87.6 Hypokalemia; R19.7 Diarrhea, unspecified; J12.82 Pneumonia due to coronavirus disease 2019